=== PATIENT | male | born 1980 | race Caucasian/White ===

== ENCOUNTER 2016-10-09 13:00 | Emergency (ER) | payer OTHER ==
[2016-10-09 13:44] VITALS: BP 138/86
--- NOTE | 2016-10-09 15:33 | UC ---
FLU HPI - HPI Summary HPI Summary: 36 y/o male with c/o headache from back of neck/ ear extending to front x 4 days. ear pain x ~2 days, b/l, increased with coughing. decreased oral intake overall. no fever, + cold sweats at night. no recent abx use, no recent infections/ colds. - History of Current Complaint Chief Complaint: UCHeadache Stated Complaint: HEADACHE,BILATERAL EAR PAIN Time Seen by Provider: 10/09/16 13:40 Hx Obtained From: Patient Onset/Duration: Sudden Onset, Lasting Days Severity Currently: Mild Severity Initially: Moderate Pain Intensity: 8 Pain Scale Used: 0-10 Numeric - Allergy/Home Medications Allergies/Adverse Reactions: Allergies Allergy/AdvReac Type Severity Reaction Status Date / Time Bacitracin [From Neosporin] Allergy Swelling Verified 10/09/16 13:44 Neomycin [From Neosporin] Allergy Swelling Verified 10/09/16 13:44 Polymyxin B [From Neosporin] Allergy Swelling Verified 10/09/16 13:44 Home Medications: Home Medications Acetaminophen TAB* [Tylenol TAB*] 1,000 mg PO Q24H PRN 10/09/16 [History Confirmed 10/09/16] PMH/Surg Hx/FS Hx/Imm Hx Previously Healthy: Yes - Surgical History Surgical History: Yes Surgery Procedure, Year, and Place: TONSILS. ACL REPAIR RT KNEE; left shoulder bicep repair 2012 - Social History Alcohol Use: Rare Substance Use Type: None Smoking Status (MU): Never Smoked Tobacco Review of Systems Constitutional: Chills - night sweats, Fatigue ENT: Sore Throat, Ear Ache, Sinus Congestion, Sinus Pain/Tenderness Respiratory: Cough - mild/ minimal Cardiovascular: Negative Neurological: Headache Psychological: Negative All Other Systems Reviewed And Are Negative: Yes Physical Exam Triage Information Reviewed: Yes Appearance: No Pain Distress, Well-Nourished, Ill-Appearing - mild Vital Signs: Initial Vital Signs Temp 97.6 F 10/09/16 13:36 Pulse 92 10/09/16 13:36 Resp 18 10/09/16 13:36 BP 138/86 10/09/16 13:36 Pulse Ox 100 10/09/16 13:36 Eye Exam: Normal ENT: Positive: Hearing grossly normal, Pharyngeal erythema - no exudates, + moderate erythema, no swelling/ enlarge, TM dull, TM red - + fluid levels b/l, Other: - + frontal sinus tenderness to percussion Neck: Positive: Supple, Nontender, Enlarged Nodes @ - submand Respiratory: Positive: Chest non-tender, Lungs clear, Normal breath sounds, No respiratory distress, No accessory muscle use Cardiovascular: Positive: RRR, No Murmur Skin Exam: Normal Flu Course/Dx - Course Course Of Treatment: AOM, abx given, follow up if no improvement within 2-3 days or if symptoms worsen. - Differential Dx/Diagnosis Differential Diagnosis/HQI/PQRI: Bronchitis, Influenza, RSV, Upper Respiratory Infection Provider Diagnoses: AOM b/l Discharge - Discharge Plan Condition: Good Disposition: HOME Prescriptions: Amoxicillin PO (*) [Amoxicillin 500 MG CAP*] 500 mg PO Q12H #14 cap Ibuprofen TAB* [Motrin TAB* 600 MG] 600 mg PO Q6H PRN #30 tab PRN Reason: Pain Patient Education Materials: Amoxicillin (By mouth), Otitis Media (ED) Forms: *Work Release Referrals: No Primary Care Phys,NOPCP [Primary Care Provider] - Additional Instructions: - bilateral inner ear infection- antibiotics as prescribed, increase fluids, motrin/ tylenol as needed for fever, pain - Increase rest - Work note x 2 days - FOllow up with Primary physician within 1 week - return to ER/ UC with worsening symptoms, increased headache, fever/ chills, neck pain
== END 2016-10-09 14:08 | disposition home or self-care (01) ==
LOC: UCCORT 13:00
DX: H66.93 Otitis media, unspecified, bilateral (principal); R51 Headache; Z88.3 Allergy status to other anti-infective agents
CPT/HCPCS: 99202; G0463

== ENCOUNTER 2018-12-25 18:01 | Emergency (ER) | payer SELFPAY ==
--- NOTE | 2018-12-25 18:10 | UC ---
Skin Complaint HPI - HPI Summary HPI Summary: 38-year-old male who pulled a tick out from his left inner thigh earlier today. He has a scabbed area with some redness around it. He states the tick was in less than 24 hours. - History of Current Complaint Time Seen by Provider: 12/25/18 18:05 Stated Complaint: TICK BITE Hx Obtained From: Patient Onset/Duration: Gradual Onset Skin Exposure Onset/Duration: Hours Ago Timing: Constant Onset Severity: Mild Current Severity: Mild Location: Other - Left inner thigh Character: Pruritus, Redness Aggravating Factor(s): Nothing Alleviating Factor(s): Nothing Associated Signs & Symptoms: Positive: Negative Related History: Insect Bite/Sting - Patient states he removed the tick earlier today using a tweezers. - Allergy/Home Medications Allergies/Adverse Reactions: Allergies Allergy/AdvReac Type Severity Reaction Status Date / Time bacitracin Allergy Swelling Verified 12/25/18 18:14 MS Bacitracin Allergy Swelling Verified 10/09/16 13:44 [From Neosporin] MS Neomycin [From Neosporin] Allergy Swelling Verified 10/09/16 13:44 MS Polymyxin B Allergy Swelling Verified 10/09/16 13:44 [From Neosporin] neomycin Allergy Swelling Verified 12/25/18 18:14 polymyxin B Allergy Swelling Verified 12/25/18 18:14 PMH/Surg Hx/FS Hx/Imm Hx Previously Healthy: Yes - Surgical History Surgical History: Yes Surgery Procedure, Year, and Place: TONSILS. ACL REPAIR RT KNEE; left shoulder bicep repair 2012 - Family History Known Family History: Positive: Non-Contributory - Social History Occupation: Employed Full-time Alcohol Use: Rare Substance Use Type: None Smoking Status (MU): Never Smoked Tobacco Review of Systems All Other Systems Reviewed And Are Negative: Yes Skin: Positive: Other - Tick bite with a scab left inner thigh Is Patient Immunocompromised?: No Physical Exam Triage Information Reviewed: Yes Appearance: Well-Appearing, No Pain Distress, Well-Nourished Vital Signs Reviewed: Yes Musculoskeletal Exam: Normal Neurological Exam: Normal Psychological Exam: Normal Skin: Positive: Other - The patient has a scabbed area where tick was embedded in his left inner thigh surrounded by approximately 2.5 cm of erythema. Nontender on palpation and not warm to touch. No streaking. Course/Dx - Course Course Of Treatment: Patient is comfortable here. I am going to give him a prophylactic dose of doxycycline 200 mg by mouth today and information on Lyme disease. He is to follow-up with his primary care provider as needed. - Diagnoses Provider Diagnosis: Tick bite Discharge ED - Sign-Out/Discharge Documenting (check all that apply): Patient Departure All imaging exams completed and their final reports reviewed: No Studies - Discharge Plan Condition: Good Disposition: HOME Prescriptions: DOXYcycline CAP(*) [DOXYcycline 100MG CAP(*)] 200 mg PO ONCE 1 Days #2 cap Patient Education Materials: Tick Bite (ED) Referrals: [facility] [Outside] No Primary Care Phys,NOPCP [Primary Care Provider] - Additional Instructions: No dairy products, antacids or multivitamins 2 hours before you take the doxycycline and 2 hours after you take it however be sure and take it with food. Follow-up with your primary care provider or [facility] if you develop fever, chills, body aches and rashes over the next 2-3 weeks. If the area where the tick bit to becomes increasingly red, painful, pus drainage or red streaks then you're to have that rechecked. - Billing Disposition and Condition Condition: GOOD Disposition: Home - Attestation Statements Provider Attestation: This patient was not seen by. I was available for consult. Chart reviewed. [email or web address]
[2018-12-25 18:13] VITALS: BP 153/94
== END 2018-12-25 18:20 | disposition home or self-care (01) ==
LOC: UCEAST 18:01
DX: S70.362A Insect bite (nonvenomous), left thigh, initial encounter (principal); Z88.1 Allergy status to other antibiotic agents; Z91.09 Other allergy status, other than to drugs and biological substances; W57.XXXA Bitten or stung by nonvenomous insect and other nonvenomous arthropods, initial encounter; Y92.9 Unspecified place or not applicable
CPT/HCPCS: 99211; G0463